=== PATIENT | female | born 1930 | race Caucasian/White ===

== ENCOUNTER 2017-08-14 10:36 | Inpatient (IN) | payer OTHER ==
[~2017-08-14] VITALS: Ht 157.5 cm; Wt 72.6 kg
[~2017-08-14 10:36] MED LIST: BUME1 PO; CAND16; CAND16 PO; DIPATR PO; ERGO400 PO; FURO20; FURO20 PO; HYDACE7.5; Hydrocodone-Ap1 EA23 PO; LEVSOD75; LEVSOD75 PO; MAXIMUM DAILY1 EACH PO; METF500; METF500C PO; METO10 PO; OMEP20ER PO; Omeprazole20 M1 PO; POTCHL20ER PO
[2017-08-14] MEDS ORDERED: (None)20 M1 PO (11:13)
[2017-08-14] MEDS ORDERED: PANT20 PO (11:14)
[2017-08-14] MEDS ORDERED: K-Dur20 MEQ (11:14)
[2017-08-14] MEDS ORDERED: ASPI81CH PO (11:15)
[2017-08-14 11:17] LABS: Hematocrit 45.4 % (33.0-51.0); Hemoglobin 15.3 g/dL (11.5-16.0); Mean Corpuscular HGB 29.1 pg (26.0-34.0); Mean Corpuscular HGB Conc 33.7 g/dL (31.5-36.5); Mean Corpuscular Volume 86 fL (80-100); Mean Platelet Volume 9.9 fL (9.1-12.4); Platelet Count 346 K/mm3 (150-400); RDW Coefficient Variation 13.8 % (11.7-14.2); RDW Standard Deviation 42.5 fL (35.1-46.3); Red Blood Cell Count 5.26 M/mm3 (3.80-5.20); White Blood Cell Count 30.01 K/mm3 (4.00-11.30)
[2017-08-14 11:49] LABS: BASOPHILS PERCENT MAN 0 % (0-2); EOSINOPHILS PERCENT MAN 0 % (0-6); LYMPHOCYTES PERCENT MAN 24 % (21-46); MONOCYTES PERCENT MAN 1 % (4-13); SEG NEUTROPHILS PERCENT MAN 75 % (41-73); TOTAL CELLS COUNTED 100
[2017-08-14 12:39] LABS: Chloride, Blood 100 mmol/L (98-108); Potassium, Blood 4.2 mmol/L (3.5-5.5); Sodium, Blood 136 mmol/L (136-145)
[2017-08-14 12:47] LABS: Alanine Aminotransfer (ALT/SGP 25 U/L (12-78); Albumin, Blood 4.3 g/dL (3.4-5.0); Alk Phos 98 U/L (50-136); Anion Gap 15 mmol/L (6-16); Aspartate Aminotrans (AST/SGOT 18 U/L (12-37); Blood Urea Nitrogen 37 mg/dL (8-24); Bun/Creatinine Ratio 35.6 (12.0-20.0); CO2, Blood 21 mmol/L (21-32); Calcium, Blood 10.1 mg/dL (8.5-10.1); Creatinine, Blood 1.04 mg/dL (0.40-1.00); Globulin, Blood 4.2 g/dL (2.2-4.0); Glomerular Filtration Rate 53 (60-); Glucose, Blood 232 mg/dL (70-99); Total Protein, Blood 8.5 g/dL (6.4-8.2)
[2017-08-14 13:35] LABS: Calcium, Ionized (POC) 1.16 mmol/L (1.10-1.46); Chloride (POC) 96 mmol/L (98-108); Creatinine (POC) 1.4 mg/dL (0.6-1.0); Glucose (ISTAT POC) 198 mg/dL (70-99); Potassium (POC) 4.3 mmol/L (3.5-5.5); Sodium (POC) 137 mmol/L (135-148); Total CO2 (POC) 27 mmol/L (21-32)
[2017-08-14 13:35] LABS: Magnesium, Blood 2.4 mg/dL (1.6-2.4); Troponin I <0.015 ng/mL (0.000-0.040)
[2017-08-15 05:23] LABS: Hematocrit 44.1 % (33.0-51.0); Hemoglobin 14.2 g/dL (11.5-16.0); Mean Corpuscular HGB 28.6 pg (26.0-34.0); Mean Corpuscular HGB Conc 32.2 g/dL (31.5-36.5); Mean Corpuscular Volume 89 fL (80-100); Mean Platelet Volume 10.3 fL (9.1-12.4); Platelet Count 318 K/mm3 (150-400); RDW Coefficient Variation 14.1 % (11.7-14.2); RDW Standard Deviation 45.1 fL (35.1-46.3); Red Blood Cell Count 4.97 M/mm3 (3.80-5.20); White Blood Cell Count 18.24 K/mm3 (4.00-11.30)
[2017-08-15 05:48] LABS: Bun/Creatinine Ratio 29.6 (12.0-20.0); Calcium, Blood 8.8 mg/dL (8.5-10.1); Creatinine, Blood 1.08 mg/dL (0.40-1.00); Potassium, Blood 4.4 mmol/L (3.5-5.5)
[2017-08-16 08:06] LABS: Hematocrit 37.6 % (33.0-51.0); Hemoglobin 11.9 g/dL (11.5-16.0); Mean Corpuscular HGB 28.8 pg (26.0-34.0); Mean Corpuscular HGB Conc 31.6 g/dL (31.5-36.5); Mean Corpuscular Volume 91 fL (80-100); Mean Platelet Volume 10.2 fL (9.1-12.4); Platelet Count 242 K/mm3 (150-400); RDW Coefficient Variation 14.2 % (11.7-14.2); RDW Standard Deviation 47.2 fL (35.1-46.3); Red Blood Cell Count 4.13 M/mm3 (3.80-5.20); White Blood Cell Count 12.46 K/mm3 (4.00-11.30)
[2017-08-17 05:24] LABS: Anion Gap 4 mmol/L (6-16); Blood Urea Nitrogen 20 mg/dL (8-24); Bun/Creatinine Ratio 23.3 (12.0-20.0); CO2, Blood 27 mmol/L (21-32); Calcium, Blood 8.1 mg/dL (8.5-10.1); Chloride, Blood 119 mmol/L (98-108); Creatinine, Blood 0.86 mg/dL (0.40-1.00); Glomerular Filtration Rate >60 (60-); Glucose, Blood 83 mg/dL (70-99); Potassium, Blood 4.1 mmol/L (3.5-5.5); Sodium, Blood 150 mmol/L (136-145)
[2017-08-17 17:33] LABS: Anion Gap 6 mmol/L (6-16); Blood Urea Nitrogen 18 mg/dL (8-24); Bun/Creatinine Ratio 22.2 (12.0-20.0); CO2, Blood 29 mmol/L (21-32); Calcium, Blood 8.4 mg/dL (8.5-10.1); Chloride, Blood 113 mmol/L (98-108); Creatinine, Blood 0.81 mg/dL (0.40-1.00); Glomerular Filtration Rate >60 (60-); Glucose, Blood 134 mg/dL (70-99); Potassium, Blood 3.6 mmol/L (3.5-5.5); Sodium, Blood 148 mmol/L (136-145)
[2017-08-18 05:54] LABS: Anion Gap 5 mmol/L (6-16); Blood Urea Nitrogen 15 mg/dL (8-24); Bun/Creatinine Ratio 19.6 (12.0-20.0); CO2, Blood 28 mmol/L (21-32); Calcium, Blood 7.9 mg/dL (8.5-10.1); Chloride, Blood 110 mmol/L (98-108); Creatinine, Blood 0.77 mg/dL (0.40-1.00); Glomerular Filtration Rate >60 (60-); Glucose, Blood 125 mg/dL (70-99); Potassium, Blood 3.6 mmol/L (3.5-5.5); Sodium, Blood 143 mmol/L (136-145)
== END 2017-08-19 10:23 | disposition home or self-care (01) | DRG 388 ==
LOC: ER 10:36 → SURS 14:10
PROVIDERS: Emergency Medicine; Internal Medicine
DX: K56.609 Unspecified intestinal obstruction, unspecified as to partial versus complete obstruction (principal); N17.0 Acute kidney failure with tubular necrosis; R65.10 Systemic inflammatory response syndrome (SIRS) of non-infectious origin without acute organ dysfunction; I50.32 Chronic diastolic (congestive) heart failure; E87.0 Hyperosmolality and hypernatremia; I11.0 Hypertensive heart disease with heart failure; E11.9 Type 2 diabetes mellitus without complications; E03.9 Hypothyroidism, unspecified; Z90.49 Acquired absence of other specified parts of digestive tract; Z85.038 Personal history of other malignant neoplasm of large intestine; Z87.891 Personal history of nicotine dependence; Z79.82 Long term (current) use of aspirin; Z79.891 Long term (current) use of opiate analgesic; Z79.52 Long term (current) use of systemic steroids; Z79.899 Other long term (current) drug therapy; Z88.0 Allergy status to penicillin; Z88.2 Allergy status to sulfonamides; Z88.8 Allergy status to other drugs, medicaments and biological substances; Z88.1 Allergy status to other antibiotic agents; Z91.040 Latex allergy status
CPT/HCPCS: 36415; 71045; 74022; 74176; 80047; 80048; 80053; 83690; 83735; 84484; 85014; 85025; 85027; 93005; 93010; 96374; 96375; 96376; 99285; J1200; J1650; J1956; J2405; J2765; J3010; J7030; J7070; J7120

== ENCOUNTER 2018-05-06 08:06 | Emergency (ER) | payer OTHER, SELFPAY ==
[~2018-05-06] VITALS: Ht 157.5 cm; Wt 72.6 kg
[~2018-05-06 08:06] MED LIST changes: +(None)20 M1 PO; +ASPI81CH PO; +K-Dur20 MEQ; +PANT20 PO
[2018-05-06] MEDS ORDERED: Percocet 5-3251 EACH PO (10:57)
== END 2018-05-06 11:23 | disposition home or self-care (01) ==
LOC: ER 08:06
DX: M17.11 Unilateral primary osteoarthritis, right knee (principal); M11.261 Other chondrocalcinosis, right knee; I50.9 Heart failure, unspecified; E11.9 Type 2 diabetes mellitus without complications; Z88.0 Allergy status to penicillin; Z88.1 Allergy status to other antibiotic agents; Z88.2 Allergy status to sulfonamides; Z91.040 Latex allergy status; Z88.8 Allergy status to other drugs, medicaments and biological substances; Z79.82 Long term (current) use of aspirin; Z79.899 Other long term (current) drug therapy; Z87.891 Personal history of nicotine dependence
CPT/HCPCS: 73562-RT; 96372; 99283-25; J3301

== ENCOUNTER → 2020-01-05 | Outpatient (CLI) | payer OTHER ==
[~2020-01-05] MED LIST changes: +Percocet 5-3251 EACH PO
== END | disposition home or self-care (01) ==
LOC: LAB SHORT 14:53 → PLD 14:53
DX: D48.5 Neoplasm of uncertain behavior of skin (principal)
CPT/HCPCS: 88305